=== PATIENT | female | born 1995 | race Asian ===

== ENCOUNTER 2017-11-01 10:02 | Emergency (ER) | payer OTHER ==
[2017-11-01] MEDS ORDERED: NS 0.9% 1000 ML* 1,000 ML IV ONE (10:57)
[2017-11-01] MEDS ORDERED: Ketorolac INJ* 30 MG/ML 1 ML VIAL IV PUSH ONE (10:58)
[2017-11-01] MEDS ORDERED: Ondansetron INJ* 2 MG/ML VIAL IV ONE (11:02)
--- NOTE | 2017-11-01 11:17 | ED ---
Influenza-Like Illness - HPI Summary HPI Summary: This patient is a 21 year old F presenting to [facility] accompanied by her friends with a chief complaint of flu-like symptoms for the past several days. She endorses cough, scratchy throat, nasal congestion/rhinorrhea, chills, fever, weakness, SOB, and CP. This AM after waking, after better sleep and fewer sx than she has had in several days, she experienced severe, sudden onset suprapubic abd pain and nausea, and distal extremity numbness. She denies sexual activity/possibility of . She denies interacting with/being around people dx with flu. Pt denies appetite change, JORDAN, and ear pain. She stated that she did not eat this AM secondary to pain. She notes that movement and upright position aggravate abd pain sx. The patient endorses decreased pain level currently, when compared to this AM. - History of Current Complaint Chief Complaint: EDFluSymptoms Hx Obtained From: Patient Onset/Duration: Gradual Onset, Lasting Days, Still Present, Worse Since - This AM Severity: Moderate Associated Signs & Symptoms: Cough, Sore Throat, Nasal Congestion - Allergy/Home Medications Allergies/Adverse Reactions: Allergies Allergy/AdvReac Type Severity Reaction Status Date / Time No Known Allergies Allergy Verified 11/01/17 10:06 Home Medications: Home Medications Solodyn 50 mg PO DAILY 11/01/17 [History Confirmed 11/01/17] PMH/Surg Hx/FS Hx/Imm Hx Endocrine/Hematology History: Denies: Hx Sickle Cell Disease Cardiovascular History: Denies: Hx Pacemaker/ICD History: Denies: Hx Dialysis Sensory History: Denies: Hx Legally Blind, Hx Deafness Opthamlomology History: Denies: Hx Legally Blind EENT History: Denies: Hx Deafness Psychiatric History: Denies: Hx Schizophrenia Infectious Disease History: No Infectious Disease History: Denies: Traveled Outside the [place] in Last 30 Days - Family History Known Family History: Positive: Other - Breast CA (mother), ALS (father) - Social History Occupation: Student Lives: Dormitory/Roommates Alcohol Use: Occasionally Substance Use Type: Reports: None Smoking Status (MU): Never Smoked Tobacco Review of Systems Positive: Chills. Negative: Fever Negative: Blurred Vision, Diplopia Positive: Sore Throat, Nasal Discharge. Negative: Ear Ache Positive: Chest Pain Positive: Shortness Of Breath, Cough Positive: Abdominal Pain, Nausea Positive: no symptoms reported Negative: Edema Negative: Rash, Bruising Positive: Weakness, Numbness All Other Systems Reviewed And Are Negative: No Physical Exam - Summary Physical Exam Summary: Appearance: Alert, conversive, nontoxic appearing Skin: Warm, dry, no mottling, no rashes, no contusions HEENT: EOMI, PERRL, moist mucous membranes Neck: No masses on the neck, supple Respiratory: Clear to auscultation, breath sounds present, no rales, no rhonchi , no wheezes Cardiovascular: RRR, pulses are symmetrical in both lower and upper extremities Abdomen: Soft, non-tender Bowel Sounds: Present Musculoskeletal: No CVA tenderness, no obvious deformity, moving all extremities in a grossly normal manner Neurological: A&Ox3, CN II-XII Intact, moving all extremities symmetrically Psychiatric: Normal affect and mood Triage Information Reviewed: Yes Vital Signs On Initial Exam: Initial Vitals Temp Pulse Resp BP Pulse Ox 97.4 F 81 16 104/60 99 11/01/17 10:07 11/01/17 10:07 11/01/17 10:07 11/01/17 10:07 11/01/17 10:07 Vital Signs Reviewed: Yes Diagnostics - Vital Signs Vital Signs Temp Pulse Resp BP Pulse Ox 11/01/17 10:18 77 110/73 99 11/01/17 10:07 97.4 F 81 16 104/60 99 - Laboratory Result Diagrams: 11/01/17 11:21 11/01/17 11:21 Lab Statement: Any lab studies that have been ordered have been reviewed, and results considered in the medical decision making process. Flu Symptom Course/Dx - Course Course Of Treatment: A 21 y/o F presents to the ED with flu-like sx and sudden onset suprapubic pain this AM. School excuse given for Saturday. Pt appears to have viral syndrome, alert, non-toxic. Labs are grossly normal, pt is not . Urine has not been collected. Pt has no dysuria. Pt ambulated with no problems. - Diagnoses Provider Diagnoses: Upper respiratory infection, Viral syndrome Discharge - Sign-Out/Discharge Documenting (check all that apply): Patient Departure - discharge - Discharge Plan Condition: Stable Disposition: HOME Patient Education Materials: Upper Respiratory Infection (ED), Viral Syndrome ( ED) Forms: *School Release Referrals: [facility] [Provider Group] Additional Instructions: Take tylenol and motrin for pain. return if worse or any new symptoms. Follow up with the campus provider. - Attestation Statements Document Initiated by Scribe: Yes Documenting Scribe: David Desouza Provider For Whom Scribe is Documenting (Include Credential): Dr. Soheila Avitia MD Scribe Attestation: IDavid, scribed for Dr. Soheila Avitia MD on 11/01/17 at 1232.
[2017-11-01 11:35] LABS: ABS Basophils 0 10^3/ul (0-0.2); ABS Eosinophils 0.1 10^3/ul (0-0.6); ABS Lymphocytes 0.9 10^3/ul (1.0-4.8); ABS Monocytes 0.6 10^3/ul (0-0.8); ABS Neutrophils 9.2 10^3/ul (1.5-7.7); ABS Nucleated RBC 0 10^3/ul; Eosinophil % 1.3 % (0-6); Hematocrit 36 % (35-47); Hemoglobin 12.2 g/dl (12.0-16.0); Lymphocyte % 8.1 % (25-47); Mean Corpuscular HGB Conc 34 g/dl (31-36); Mean Corpuscular Hemoglobin 30 pg (27-31); Mean Corpuscular Volume 88 fL (80-97); Mean Platelet Volume 7.8 um3 (7.4-10.4); Nucleated Red Blood Cells % 0; Platelet Count 271 10^3/ul (150-450); Red Blood Count 4.07 10^6/ul (4.00-5.40); Red Cell Distribution Width 13 % (10.5-15); White Blood Count 10.8 10^3/ul (3.5-10.8)
[2017-11-01 12:05] LABS: EGFR Non-African American 128.8 (>60)
[2017-11-01 13:39] VITALS: BP 107/71
[2017-11-01 13:40] LABS: Urine Appearance Clear; Urine Blood 1+ (Negative); Urine Color Straw; Urine Ketones Trace (Negative); Urine Protein Negative (Negative); Urine Red Blood Cell Trace(0-2/hpf) (Absent); Urine Specific Gravity 1.004 (1.010-1.030); Urine Urobilinogen Negative (Negative); Urine White Blood Cell Absent (Absent)
== END 2017-11-01 13:40 | disposition home or self-care (01) ==
LOC: ED 10:02
DX: J06.9 Acute upper respiratory infection, unspecified (principal); B34.9 Viral infection, unspecified
CPT/HCPCS: 36415; 80053; 81003; 81015; 84702; 85025; 87086; 96361; 96374; 96375; 99282; J1885; J2405